=== PATIENT | female | born 1965 | race Caucasian/White ===

== ENCOUNTER 2024-05-04 15:44 | Emergency (ER) | payer MEDICAID ==
[~2024-05-04] VITALS: Ht 154.9 cm; Wt 72.6 kg
[2024-05-04 16:01] VITALS: BP 134/75; PULSE 80; RESP 18; TEMP 98; O2SAT 97
[2024-05-04] MEDS ORDERED: FAMO-90 PO (16:58)
== END 2024-05-04 17:01 | disposition home or self-care (01) ==
LOC: MED 15:44
DX: K21.9 Gastro-esophageal reflux disease without esophagitis (principal); R05.9 Cough, unspecified; I10 Essential (primary) hypertension; Z79.899 Other long term (current) drug therapy
CPT/HCPCS: 71046; 99283